=== PATIENT | female | born 1965 | race African-American/Black ===

== ENCOUNTER 2019-08-23 08:21 | Day surgery (SDC) | payer OTHER ==
[2019-08-20 16:43] VITALS: BMI 33.1
[2019-08-23 10:36] VITALS: TEMP 98.2
[2019-08-23 11:26] VITALS: BP 142/78; PULSE 76
== END 2019-08-23 10:45 | disposition home or self-care (01) ==
LOC: JASU-ENDO 08:21
PROVIDERS: ATTEND Internal Medicine Gastroenterology
PROC: 0DJD8ZZ Inspection of Lower Intestinal Tract, Via Natural or Artificial Opening Endoscopic (ICD-10-PCS; principal; 2019-08-23 09:30)
DX: Z12.11 Encounter for screening for malignant neoplasm of colon (principal); K64.8 Other hemorrhoids; I10 Essential (primary) hypertension